=== PATIENT | male | born 1965 | race Caucasian/White ===

== ENCOUNTER → 2019-03-12 | Day surgery (SDC) | payer BC ==
[~2019-03-12] MED LIST: Lactated Ringers 1,000 ML IV SCH; Propofol 200 MG/20 ML SDV IV ONE
--- NOTE | 2019-03-15 08:27 | OR ---
DATE OF OPERATION: 03/12/2019 PREOPERATIVE DIAGNOSIS: SCREENING COLONOSCOPY. POSTOPERATIVE DIAGNOSIS: SCREENING COLONOSCOPY. SURGEON: Ford Koch MD PROCEDURE: FULL-LENGTH COLONOSCOPY. ANESTHESIA: MAC via HEEL SLUGGER. COMPLICATIONS: None. SPECIMEN: None. FINDINGS: 1. Full-length colonoscopy. 2. Moderate sigmoid diverticulosis. RECOMMENDATIONS: Followup colonoscopy every 10 years. INDICATIONS: The patient was seen for routine physical. He qualifies for screening exam due to his age. He agreed to proceed. DESCRIPTION OF PROCEDURE: The patient was prepped and draped, placed in the left lateral decubitus position. A lubricated Olympus colonoscope was inserted and easily advanced to the cecum. Direct visualization of the ileocecal valve and appendiceal orifice was accomplished. The bowel prep was fine. Upon withdrawal of the scope, the entire right, transverse, and descending colons were benign. The patient had moderate diverticular disease of the entire sigmoid and rectosigmoid junction. No inflammatory changes were seen. I could find no signs of any polyps, mass, ulceration, or bleeding sites. No vascular abnormalities or signs of colitis. The rectal vault was benign. Retroflexion showed no perianal lesions. Air was then suctioned. Scope was removed without complication. CLARK/HUMBERTO /[id number]
== END ==
LOC: CC.SDS 11:58
PROVIDERS: ATTEND Family Medicine
DX: Z12.11 Encounter for screening for malignant neoplasm of colon (principal); K57.30 Diverticulosis of large intestine without perforation or abscess without bleeding; E78.5 Hyperlipidemia, unspecified; J45.909 Unspecified asthma, uncomplicated; F17.290 Nicotine dependence, other tobacco product, uncomplicated; N40.0 Benign prostatic hyperplasia without lower urinary tract symptoms; Z79.82 Long term (current) use of aspirin; Z79.899 Other long term (current) drug therapy
CPT/HCPCS: G0121; J2704; J7120